=== PATIENT | male | born 1980 | race Caucasian/White ===

== ENCOUNTER 2021-05-27 16:33 | Emergency (ER) | payer OTHER, SELFPAY ==
[2021-05-27 16:35] VITALS: BP 142/103; PULSE 86; RESP 18; TEMP 37; O2SAT 97; BMI 30.8
--- NOTE | 2021-05-27 16:46 | CT_ITS ---
PROCEDURE INFORMATION: Exam: CT Abdomen And Pelvis Without Contrast Exam date and time: 05/27/2021 4:46 PM Age: 41 years old Clinical indication: Other: Right flank pain TECHNIQUE: Imaging protocol: Computed tomography of the abdomen and pelvis without contrast. Radiation optimization: All CT scans at this facility use at least one of these dose optimization techniques: automated exposure control; mA and/or kV adjustment per patient size (includes targeted exams where dose is matched to clinical indication); or iterative reconstruction. COMPARISON: No relevant prior studies available. FINDINGS: Liver: Normal. No mass. Gallbladder and bile ducts: Normal. No calcified stones. No ductal dilation. Pancreas: Normal. No ductal dilation. Spleen: Normal. No splenomegaly. Adrenal glands: Normal. No mass. Kidneys and ureters: 2 mm calcification present within the distal right ureter with right obstructive uropathy. Punctate calcification present within the left kidney without evidence of obstructive uropathy. Stomach and bowel: Unremarkable. No obstruction. No mucosal thickening. Appendix: No evidence of appendicitis. Intraperitoneal space: Normal. No significant fluid collection. Vasculature: Unremarkable. No abdominal aortic aneurysm. Lymph nodes: Unremarkable. No enlarged lymph nodes. Urinary bladder: 3 mm calcification present within the urinary bladder. There is mild bladder wall thickening consistent with incomplete distension, chronic outflow obstruction, or cystitis. Reproductive: The prostate gland demonstrates nonspecific parenchymal calcifications. Bones/joints: The lumbar spine demonstrates mild degenerative changes at multiple levels. Soft tissues: Soft tissues are normal. IMPRESSION: 1. 2 mm calcification present within the distal right ureter with right obstructive uropathy. 2. 3 mm calcification present within the urinary bladder. 3. Punctate calcification present within the left kidney without evidence of obstructive uropathy. 4. There is mild bladder wall thickening consistent with incomplete distension, chronic outflow obstruction, or cystitis.
[2021-05-27 16:51] LABS: Microscopic, Urine URINE MICROSCOPIC (MICROSCOPIC)
[2021-05-27 17:04] LABS: Basophils # 0.2 K/mm3 (0-0.2); Basophils % 2.5 % (0.1-2.0); Eosinophils # 0.1 K/mm3 (0.0-0.4); Eosinophils % 1.7 % (0.1-12.0); Hemoglobin 17.6 g/dL (14.1-18.0); Lymphocytes # 1.3 K/mm3 (0.7-4.5); Lymphocytes % 15.7 % (10-50); Mean Corpuscular HGB Conc 33.3 g/dL (31.8-35.4); Mean Corpuscular Hemoglobin 30.4 pg (27.0-31.2); Mean Corpuscular Volume 91.3 fl (80-94); Mean Platelet Volume 7.6 fl (7.4-10.4); Monocytes # 0.6 K/mm3 (0.1-1.0); Monocytes % 7.3 % (1.7-9.3); Neutrophils # 5.8 K/mm3 (1.8-7.8); Neutrophils % 72.8 % (37.0-80.0); Platelet Count 297 K/mm3 (142-424); Red Cell Distribution Width 13.5 % (11.5-17.5)
[2021-05-27 17:05] LABS: Appearance,Urine SL CLOUDY (Clear); Bilirubin,Urine Negative (Negative); Blood, Urine 3+ (Negative); Color,Urine YELLOW (Yellow); Glucose,Urine (UA) Negative (Negative); Ketones,Urine Negative (Negative); Leukocyte Esterase,Urine Negative (Negative); Nitrate,Urine Negative (Negative); Protein,Urine Negative (Negative); Urobilinogen,Urine 0.2 EU/dl (0.2)
[2021-05-27 17:09] LABS: Alanine Aminotransferase 29 U/L (12-78); Albumin Level 4.6 g/dl (3.5-5.0); Albumin/Globulin Ratio 1.4 (1.1-1.8); Alkaline Phosphatase 75 U/L (38-126); Anion Gap 12.5 mEq/L (5-15); Aspartate Amino Transferase 32 U/L (17-59); Bilirubin,Total 0.6 mg/dl (0.2-1.3); Blood Urea Nitrogen 21 mg/dl (9-20); Calcium 9.8 mg/dl (8.4-10.2); Carbon Dioxide 31 mmol/L (22.0-30.0); Chloride 103 mmol/L (98-107); Estimated Glomerular Filt Rate 73 ml/min (>60); GFR (African American) 89 ML/MIN (>60); Globulin 3.2 g/dL (1.3-3.2); Glucose 94 mg/dl (74-100); Lipase 115 U/L (23-300); Potassium 4.5 mmoL/L (3.5-5.1); Sodium 142 mmol/L (136-145); Total Protein,Serum 7.8 g/dl (6.3-8.2)
[2021-05-27 17:21] LABS: RBC,Urine 50-100 #/hpf (0-3); Squamous Epithelial Cell,Urine Occasional #/hpf (0-5); WBC,Urine Occasional #/hpf (0-3)
--- NOTE | 2021-05-27 17:26 | HMH.EDGENADL ---
ED Disposition Clinical Impression: Kidney stone on right side Disposition: Home, Self-Care Condition on Discharge: Good Instructions: DI for Kidney Stones Prescriptions: Hydrocod/Acet 5/325 mg [[place] 5/325mg tablet] 1 tab PO Q6HP PRN #7 tab PRN Reason: Moderate To Severe Pain Transmission Status: Sent to [facility] #[id number] Tamsulosin HCl [Flomax 0.4mg capsule] 0.4 mg PO DAILY #10 cap Transmission Status: Pending to [facility] #[id number] Ondansetron [Zofran 4mg ODT] 4 mg PO BIDP PRN #10 tab PRN Reason: Nausea Transmission Status: Pending to [facility] #[id number] Referrals: Demian Valero MD [Primary Care Provider] - Jesus Manuel Molina MD [Staff Physician] - - Critical Care Critical Care Time: No Attestation: On 05/27/21, the high probability of a clinically significant, sudden or life threatening deterioration of the following system(s) required my full and direct attention, intervention and personal management. The time I documented below is in addition to time spent performing reported procedures but includes the following listed in this critical care notation. Medical Decision Making - Medical Records Medical records reviewed: Yes: I reviewed the patient's medical records. - James Inquiry Pt receiving controlled substance: No Vital Signs: 05/27/21 16:35 Temperature 98.6 F Temperature Source Oral Pulse Rate [Left Radial] 86 Respiratory Rate 18 Blood Pressure [Right Arm] 142/103 H Blood Pressure Mean [Right Arm] 116 Blood Pressure Source [Right Arm] Automatic Cuff Blood Pressure Position [Right Arm] Sitting 02 Sat by Pulse Oximetry 97 Oxygen Delivery Method Room Air - Lab Data Lab Results 05/27/21 16:40: Urine Color Yellow, Urine Appearance Sl cloudy, Urine pH 6.0, Ur Specific Hendricks 1.020, Urine Protein Negative, Urine Glucose (UA) Negative, Urine Ketones Negative, Urine Blood 3+, Urine Nitrate Negative, Urine Bilirubin Negative, Urine Urobilinogen 0.2, Ur Leukocyte Esterase Negative, Urine RBC 50-100, Urine WBC Occasional, Ur Squamous Epith Cells Occasional, Urine Bacteria None 05/27/21 16:55: WBC 8.0, RBC 5.80, Hgb 17.6, Hct 53.0 H, MCV 91.3, MCH 30.4, MCHC 33.3, RDW 13.5, Plt Count 297, MPV 7.6, Neut % (Auto) 72.8, Lymph % (Auto) 15.7, Jewell % (Auto) 7.3, Eos % (Auto) 1.7, Baso % (Auto) 2.5 H, Neut # (Auto) 5.8, Lymph # (Auto) 1.3, Jewell # (Auto) 0.6, Eos # (Auto) 0.1, Baso # (Auto) 0.2 05/27/21 16:55: Sodium 142, Potassium 4.5, Chloride 103, Carbon Dioxide 31 H, Anion Gap 12.5, BUN 21 H, Creatinine 1.10, Estimated GFR 73, Est GFR ( Amer) 89, Glucose 94, Calcium 9.8, Total Bilirubin 0.6, AST 32, ALT 29, Alkaline Phosphatase 75, Total Protein 7.8, Albumin 4.6, Globulin 3.2, Albumin/Globulin Ratio 1.4, Lipase 115 Result diagrams: 05/27/21 16:55 05/27/21 16:55 Orders (Tests/Meds): ED MEDICATIONS Generic Name Dose Route Start Last Admin Trade Name Freq PRN Reason Stop Dose Admin Acetaminophen/Codeine Phosphate 1 santana 05/27/21 18:13 Acetaminophen 300mg W/Codeine 30mg Take Home Pack (6) PO 05/27/21 18:14 ONCE ONE Sodium Chloride 1,000 mls @ 999 mls/hr 05/27/21 17:00 05/27/21 17:01 Sod Chlor 0.9% 1000ml Bag IV 05/27/21 18:00 999 mls/hr .Q1H1M MARGARITA Administration Discontinued Medications Generic Name Dose Route Start Last Admin Trade Name Freq PRN Reason Stop Dose Admin Ketorolac Tromethamine 30 mg 05/27/21 16:46 05/27/21 17:01 Ketorolac 30mg/Ml Vial IV 05/27/21 16:47 30 mg ONCE ONE Administration Ondansetron HCl 4 mg 05/27/21 16:46 05/27/21 17:01 Ondansetron 4mg/2ml Vial IV 05/27/21 16:47 4 mg ONCE ONE Administration - CT Data CT Scan: Abdomen, Pelvis Time Received: 18:[address] Reviewed: Yes: I have reviewed the patient's CT results, I have viewed the radiologist's interpretation Findings Narrative: IMPRESSION: 1. 2 mm calcification present within the distal right ureter with right
[2021-05-27 18:24] VITALS: BP 157/98; PULSE 75; RESP 20; TEMP 37; O2SAT 98
== END 2021-05-27 18:25 | disposition home or self-care (01) ==
PROVIDERS: Emergency Provider Emergency Medicine; PCP Internal Medicine Adolescent Medicine
DX: N30.80 Other cystitis without hematuria (principal); N20.2 Calculus of kidney with calculus of ureter; F17.290 Nicotine dependence, other tobacco product, uncomplicated; Z79.51 Long term (current) use of inhaled steroids; Z79.52 Long term (current) use of systemic steroids; Z79.899 Other long term (current) drug therapy
CPT/HCPCS: 74176; 80053; 81001; 83690; 85025; 96365; 96374; 96375; 99284; J2405

== ENCOUNTER 2021-12-14 12:08 | Emergency (ER) | payer OTHER, SELFPAY ==
[2021-12-14 12:18] VITALS: BP 185/136; RESP 18; O2SAT 99; BMI 32.5
[2021-12-14 12:48] VITALS: BP 140/100; PULSE 120; RESP 17; O2SAT 97; BMI 32.5
--- NOTE | 2021-12-14 13:09 | XR_ITS ---
FINAL REPORT CLINICAL HISTORY: dog bite to left low leg, x today FINDINGS: Two views of the left tibia-fibula demonstrate no acute fracture or dislocation. The joint spaces appear normal. The visualized bony structures are well aligned. There is a soft tissue defect with subcutaneous emphysema. No radiopaque foreign bodies are identified. IMPRESSION: No acute fracture or foreign body. Reviewed, Interpreted and Dictated by Bry Tohmas MD Transcribed by Cuauhtemoc Mayorga Authenticated and [facility]
--- NOTE | 2021-12-14 13:13 | HMH.EDGENADL ---
Discharge Plan Disposition Patient Disposition: Home, Self-Care Condition: Good Prescriptions Prescriptions: New amoxicillin-pot clavulanate [Augmentin] 500-125 mg tablet 1 tab PO TID Qty: 30 0RF No Action benzonatate 100 MG capsule 100 mg PO TID cefdinir 300 MG capsule 300 mg PO BID fexofenadine-pseudoephedrine [Janett-D 24 Hour] 1 EACH tablet extended release 24 hr 1 ea PO DAILY omeprazole-sodium bicarbonate [Zegerid] 1 EACH capsule 1 ea PO DAILY methylprednisolone [Medrol (Cale)] 4 MG tablets,dose pack 4 mg PO DIRECTED Qty: 21 0RF albuterol sulfate [Ventolin HFA] 18 GM HFA aerosol inhaler 2 puffs inhalation Q6HP PRN (Reason: Shortness Of Breath Or Wheezing) Qty: 1 0RF fluticasone propionate 120 SPR/BOT spray,suspension 2 spr intranasal DAILY Qty: 1 0RF Rx Instructions: each nostril ondansetron 4 MG tablet,disintegrating 4 mg PO BIDP PRN (Reason: Nausea) Qty: 10 0RF hydrocodone-acetaminophen 1 TAB tablet 1 tab PO Q6HP PRN (Reason: Moderate To Severe Pain) Qty: 7 0RF tamsulosin 0.4 MG capsule 0.4 mg PO DAILY Qty: 10 0RF Referrals Follow up/Referrals: Demian Valero MD [Primary Care Provider] - See instructions Activity Restrictions/Add. Instructions Additional Instructions/Restrictions: Clean wound daily with soap and water and reapply bandage. Take Augmentin as prescribed. Ibuprofen for pain. Elevate leg to reduce pain and swelling. Follow-up for a wound check by primary care provider or in the urgent treatment center or emergency department here in 2 to 3 days. Suture removal in 10 days. Return to the emergency department if worsening pain, bleeding, pus drainage, redness or red streaks, fever, numbness or weakness of the extremity. Clinical Impressions Clinical Impression: Dog bite of left lower leg Instructions Patient Instructions: Animal Bites Discharge ED Provider: Haider Huerta General Adult HPI General Chief complaint: Animal Bite Stated complaint: [id number] dog bite left leg, neighbor's dog Time Seen by Provider: 12/14/21 12:56 Mode of Arrival: Ambulatory Limitations: No Limitations Description of Symptoms (Recalled from ER Triage Doc. by RN): Dog bite to left leg just below the knee around 11:30. 2 hole noted to leg. Pt tdap is not UTD. 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 The pitbull is reportedly up-to-date on immunizations. The patient does not know when he last had a tetanus immunization. He is able to ambulate. Complains of injuries to his left lower leg. He also has an abrasion on the top of his left foot which she feels was not from the dog bite, but was from shoe. Related Data Home Medications Medication Instructions Recorded Confirmed benzonatate 100 mg capsule 100 mg PO TID Cough/cold 04/28/18 04/28/18 cefdinir 300 mg capsule 300 mg PO BID URI 04/28/18 04/28/18 fexofenadine-pseudoephedrine ER 1 ea PO DAILY ALLERGIES 04/28/18 04/28/18 180 mg-240 mg tablet,ext.release 24 hr (Janett-D 24 Hour) omeprazole 20 mg-sodium 1 ea PO DAILY GERD 04/28/18 04/28/18 bicarbonate 1.1 gram capsule (Zegerid) Previous Rx's Medication Instructions Recorded albuterol sulfate 90 mcg/actuation 2 puffs inhalation Q6HP PRN 04/28/18 aerosol inhaler (Ventolin HFA) Shortness Of Breath Or Wheezing #1 inh fluticasone propionate 50 2 spr intranasal DAILY ##1 04/28/18 mcg/actuation nasal spray,suspension methylprednisolone 4 mg tablets in 4 mg PO DIRECTED ##21 04/28/18 a dose pack (Medrol (Cale)) hydrocodone 5 mg-acetaminophen 325 1 tab PO Q6HP PRN Moderate To 05/27/21 mg tablet Severe Pain #7 tabs ondansetron 4 mg disintegrating 4 mg PO BIDP PRN Nausea #10 tabs 05/27/21 tablet tamsulosin 0.4 mg capsule 0.4 mg PO DAILY #10 caps 05/27/21 amoxicillin 500 mg-potassium 1 tab PO TID #30 tabs 12/14/21 clavulanate 12
--- NOTE | 2021-12-14 13:14 | PC.NURSE ---
at the bedside to numb lacerations
--- NOTE | 2021-12-14 13:15 | PC.NURSE ---
pt to rad
[2021-12-14 13:30] VITALS: BP 138/90; PULSE 118; O2SAT 97
--- NOTE | 2021-12-14 13:30 | PC.NURSE ---
pt back from rad
[2021-12-14 14:00] VITALS: BP 139/89; PULSE 112; O2SAT 97
--- NOTE | 2021-12-14 14:16 | PC.NURSE ---
pt cleaning wounds at this time per request.
[2021-12-14 14:40] VITALS: BP 133/70; PULSE 108; RESP 18; TEMP 36.9; O2SAT 97
== END 2021-12-14 14:28 | disposition home or self-care (01) ==
LOC: UTC 12:28 → ER 12:46
PROVIDERS: Emergency Provider Emergency Medicine; PCP Internal Medicine Adolescent Medicine
DX: S81.812A Laceration without foreign body, left lower leg, initial encounter (principal); S90.812A Abrasion, left foot, initial encounter; R06.02 Shortness of breath; Z79.51 Long term (current) use of inhaled steroids; Z79.52 Long term (current) use of systemic steroids; Z79.899 Other long term (current) drug therapy; Z23 Encounter for immunization; W54.0XXA Bitten by dog, initial encounter
CPT/HCPCS: 12001; 73590; 90471; 90715; 99284

== ENCOUNTER 2021-12-16 08:00 | Emergency (ER) | payer OTHER, SELFPAY ==
--- NOTE | 2021-12-16 08:04 | XR_ITS ---
PROCEDURE INFORMATION: Exam: XR Left Foot Exam date and time: 12/16/2021 8:00 AM Age: 41 years old Clinical indication: Toes; Left; Patient HX: PT was attacked by pitbull 2 days ago, pain and bruising around 1st digit. Swelling; Additional info: Injury TECHNIQUE: Imaging protocol: Radiologic exam of the Left foot. Views: 3 or more views. COMPARISON: CR XR TIBIA FIBULA LT 2V 12/14/2021 1:14 PM FINDINGS: Bones/joints: Hindfoot-midfoot and midfoot-forefoot articulations normal. Metatarsals and phalanges without an acute process. Subtalar and tibiotalar joint normal. Mild degenerative changes at the first metatarsal phalangeal joint. Mild soft tissue swelling about the joint space medially. Soft tissues: Early spur formation insertion of the plantar aponeurosis. IMPRESSION: No acute process 1. Mild degenerative changes at the first metatarsal phalangeal joint. Mild soft tissue swelling about the joint space medially. 2. Early spur formation insertion of the plantar aponeurosis.
[2021-12-16 08:13] VITALS: BP 135/85; PULSE 108; RESP 16; TEMP 37.2; O2SAT 96; BMI 32.5
--- NOTE | 2021-12-16 08:49 | EXP.UTC ---
Discharge Plan Disposition Patient Disposition: Home, Self-Care Condition: Good Prescriptions Prescriptions: New mupirocin 2 % ointment 1 applic topical TID 7 Days Qty: 22 0RF No Action benzonatate 100 MG capsule 100 mg PO TID cefdinir 300 MG capsule 300 mg PO BID fexofenadine-pseudoephedrine [Janett-D 24 Hour] 1 EACH tablet extended release 24 hr 1 ea PO DAILY omeprazole-sodium bicarbonate [Zegerid] 1 EACH capsule 1 ea PO DAILY methylprednisolone [Medrol (Cale)] 4 MG tablets,dose pack 4 mg PO DIRECTED Qty: 21 0RF albuterol sulfate [Ventolin HFA] 18 GM HFA aerosol inhaler 2 puffs inhalation Q6HP PRN (Reason: Shortness Of Breath Or Wheezing) Qty: 1 0RF fluticasone propionate 120 SPR/BOT spray,suspension 2 spr intranasal DAILY Qty: 1 0RF Rx Instructions: each nostril amoxicillin-pot clavulanate [Augmentin] 500-125 mg tablet 1 tab PO TID ondansetron 4 MG tablet,disintegrating 4 mg PO BIDP PRN (Reason: Nausea) Qty: 10 0RF hydrocodone-acetaminophen 1 TAB tablet 1 tab PO Q6HP PRN (Reason: Moderate To Severe Pain) Qty: 7 0RF tamsulosin 0.4 MG capsule 0.4 mg PO DAILY Qty: 10 0RF Referrals Follow up/Referrals: Brayan Franks APRN [Emergency Provider] - See instructions Activity Restrictions/Add. Instructions Additional Instructions/Restrictions: Keep the wounds clean and dry. Follow up with your regular doctor. Continue the antibiotics as directed and start applying the topical antibiotics as directed. Make sure you stay in contact with the health department regarding the health of the dog. Watch the puncture wounds for signs of worsening infection, such as worsening redness, drainage, swelling, etc. GO TO THE ER FOR ANY WORSENING SYMPTOMS Clinical Impressions Clinical Impression: Dog bite of left lower leg Qualifiers: Encounter type: subsequent encounter Qualified Code(s): S81.852D - Open bite, left lower leg, subsequent encounter Stand Alone Forms Stand Alone Forms: Work/School Release Instructions Patient Instructions: DI for Cellulitis -- Adult, DI for Dog Bite Discharge ED Provider: Brayan Franks [facility] General Stated complaint: AO [id number] dog bite Mode of Arrival: Ambulatory Source of Information: Patient Limitations: No Limitations Time Seen by Provider: 12/16/21 08:49 Description of Symptoms (Recalled from Triage Doc. by RN): pt had dog bite on 12/14/21. pt here to get wound checked out per md order from er. pt thinks left big toe could be broke from earlier dog bite. 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 He found a 3 year old child outside of its home at night while it parents were asleep. When he got out of his car and picked the child up he was attacked by a dog and bit on his left lower leg. He came here to the ER then. He was started on augmentin and his leg was x-rayed for foreign bodies. He states that he was told no teeth were left in the bite. He followed up today because the wound is getting red around the puncture wounds. He denies any fever or chills. Related Data Home Medications Medication Instructions Recorded Confirmed benzonatate 100 mg capsule 100 mg PO TID Cough/cold 04/28/18 04/28/18 cefdinir 300 mg capsule 300 mg PO BID URI 04/28/18 04/28/18 fexofenadine-pseudoephedrine ER 1 ea PO DAILY ALLERGIES 04/28/18 04/28/18 180 mg-240 mg tablet,ext.release 24 hr (Janett-D 24 Hour) omeprazole 20 mg-sodium 1 ea PO DAILY GERD 04/28/18 12/16/21 bicarbonate 1.1 gram capsule (Zegerid) amoxicillin 500 mg-potassium 1 tab PO TID dog bite 12/16/21 12/16/21 clavulanate 125 mg tablet (Augmentin) Pre
[2021-12-16 09:41] VITALS: BP 135/85; PULSE 108; RESP 16; TEMP 37.2
== END 2021-12-16 09:41 | disposition home or self-care (01) ==
PROVIDERS: Emergency Provider Nurse Practitioner Family
DX: L03.116 Cellulitis of left lower limb (principal); S81.852D Open bite, left lower leg, subsequent encounter; R11.0 Nausea; R06.02 Shortness of breath; Z79.51 Long term (current) use of inhaled steroids; Z79.52 Long term (current) use of systemic steroids; Z79.899 Other long term (current) drug therapy
CPT/HCPCS: 73630; 96372; 99213; G0463; J0696

== ENCOUNTER 2021-12-25 08:00 | Emergency (ER) | payer SELFPAY ==
[2021-12-25 08:00] VITALS: BP 173/82; PULSE 96; RESP 20; TEMP 36.7; O2SAT 98; BMI 32.5
[2021-12-25 08:07] VITALS: BP 173/82; PULSE 96; RESP 21; TEMP 36.7; O2SAT 98
== END 2021-12-25 08:10 | disposition home or self-care (01) ==
PROVIDERS: Emergency Provider Nurse Practitioner Family; PCP Internal Medicine Adolescent Medicine
DX: S81.852A Open bite, left lower leg, initial encounter (principal); Z48.02 Encounter for removal of sutures; E66.9 Obesity, unspecified; Z79.1 Long term (current) use of non-steroidal anti-inflammatories (NSAID); Z79.51 Long term (current) use of inhaled steroids; Z79.52 Long term (current) use of systemic steroids; Z79.899 Other long term (current) drug therapy; Z68.32 Body mass index [BMI] 32.0-32.9, adult